=== PATIENT | female | born 1965 | race Caucasian/White ===

== ENCOUNTER 2024-03-17 16:49 | Outpatient (CLI) | payer OTHER, SELFPAY ==
--- NOTE | 2024-03-17 16:55 | CT_ITS ---
WS: [id number] CT CALCIUM SCORE REASON FOR VISIT: HYPERLIPIDEMIA; Coronary artery disease risk assessment COMPARISON: None TECHNIQUE: Noncontrast coronary CT in combination with quantitative analysis performed on a separate workstation were used to determine CACS (Agatston score) TOTAL EXAM DOSE: 62.86 mGy.cm ECG GATING: Prospective SCAN RANGE: Pulmonary artery bifurcation to Inferior aspect of heart COMPLICATIONS: None FINDINGS: Technical Quality/Examination Quality: Good Limitation: None OVERALL SCORES Total calcium score: 69 Total volume score: 78 mm3 Percentile: 75th and 90th % ARTERY SCORES Left main coronary artery: 3 Left anterior descending artery: 1 Left circumflex artery: 0 Right coronary artery: 64 OTHER FINDINGS: Mediastinum: Normal. Thoracic aorta: Normal. Lungs: Normal. Upper Abdomen: Normal. MINIMAL: 1-10 MILD: 11-100 MODERATE: 101-400 SEVERE:>400 CT/CT heart w calcium score 29333 IMPRESSION: 1. Total calcium score of 69. 2. Calcium score between the 75th and 90th percentiles for females of this age. Patient is at mildly increased risk for coronary event. GRADING OF CORONARY ARTERY DISEASE (BASED ON TOTAL CALCIUM SCORE) NO EVIDENCE OF CAD: 0 calcium score
== END 2024-03-17 16:50 | disposition home or self-care (01) ==
LOC: RAD 16:49
PROVIDERS: PCP Family Medicine; Visit Provider Family Medicine
DX: E78.5 Hyperlipidemia, unspecified (principal)
CPT/HCPCS: 75571